=== PATIENT | female | born 1985 | race Caucasian/White ===

== ENCOUNTER 2017-03-20 13:48 | Outpatient (CLI) | payer OTHER ==
[~2017-03-20 13:48] MED LIST: MTR600X PO; PRENTAB26 PO
[2017-03-20] MEDS ORDERED: ACETAMINOPHEN 325 MG TAB PO PRN (14:45)
--- NOTE | 2017-03-20 14:50 | Discharge Instructions ---
Discharge Instructions Date of Service March 20, 2017. Admission Reason for Admission: Prolonged Monitoring - Post Fall Discharge Discharge Diagnosis / Problem: S/P FALL, LEG PAIN Discharge Goals Goal(s): Continuing OB care Activity Recommendations Activity Limitations: as noted below Lifting Limitations: gradually increase as tolerated Exercise/Sports Limitations: until after follow-up appointment May Resume Sexual Activity: after follow-up appointment Shower/Bathe: no limitations Driving or Machine Use: no limitations ACTIVITY RECOMMENDATIONS: See Labor Sheet. SPECIAL CARE INSTRUCTIONS: Call Doctor if: * Regular contractions every 5 minutes or greater than 5 contractions in one hour. * Bleeding * Water breaks or is leaking * Decreased movement * Fever >100.4 degrees F * Pain not relieved by routine measures or pain medication ordered. FOLLOW UP VISIT: Return to Labor and Delivery on for /call for appointment time . Follow-up Visit with: When: . Current Hospital Diet Patient's current hospital diet: Discharge Diet Recommended Diet: Regular Diet Pending Studies Studies pending at discharge: no Work Instructions Return To Work: 3 days Medical Emergencies . Who to Call and When: Medical Emergencies: If at any time you feel your situation is an emergency, please call 911 immediately. . Non-Emergent Contact Non-Emergency issues call your: Primary Care Provider Call Non-Emergent contact if: your pain is not controlled . . "Provider Documentation" section prepared by Salinas Coyle. . VTE Core Measure Inpt VTE Proph given/why not?: Treatment not indicated
== END 2017-03-20 15:05 | disposition home or self-care (01) ==
LOC: C.LD 13:48 → C.OPB 13:48
PROVIDERS: ATTEND Obstetrics & Gynecology
DX: O99.89 Other specified diseases and conditions complicating pregnancy, childbirth and the puerperium (principal); S80.01XA Contusion of right knee, initial encounter; W19.XXXA Unspecified fall, initial encounter; Z3A.33 33 weeks gestation of pregnancy

== ENCOUNTER 2017-04-30 02:05 | Outpatient (CLI) | payer OTHER ==
[~2017-04-30] VITALS: Ht 154.9 cm; Wt 68.0 kg
[2017-04-30 03:31] VITALS: Ht 154.9 cm; Wt 68.0 kg
[2017-05-01] MEDS ORDERED: ASPI81CH2 PO (04:29)
[2017-05-03] MEDS ORDERED: MISC-696 (07:31)
[2017-05-03] MEDS ORDERED: FRRS300 PO (07:31)
--- NOTE | 2017-05-03 08:07 | EDITING REQUIRED CODING QUERY ---
DIAGNOSIS NEEDED To promote full compliance with coding requirements relating to patient care, physician participation is requested in all cases of duty manager uncertainty. Please assist us with the question(s) below: Coding Question: The patient received care in labor and delivery on 04/30/17 as noted within the record. Please document the diagnosis that is being addressed by the medication/treatment. Provider Response: DIAGNOSIS: Contractions, Rule out labor Thank you for your assistance, Rama Wright - Barge Captain
== END 2017-04-30 03:25 | disposition home or self-care (01) ==
LOC: C.OPB 02:05 → C.LD 02:06 → C.OPB 03:25
PROVIDERS: ATTEND Obstetrics & Gynecology
DX: O62.9 Abnormality of forces of labor, unspecified (principal); Z3A.40 40 weeks gestation of pregnancy

== ENCOUNTER 2017-05-01 03:44 | Inpatient (IN) | payer OTHER ==
[~2017-05-01] VITALS: Ht 154.9 cm; Wt 65.8 kg
[2017-05-01] MEDS ORDERED: ASPI81CH2 PO (04:29)
[2017-05-01] MEDS ORDERED: LACTATED RINGER'S 1000ML 1,000 ML IV PRN (04:40)
[2017-05-01 04:53] VITALS: Ht 154.9 cm; Wt 65.8 kg
[2017-05-01 05:17] LABS: HEMATOCRIT 37.1 % (37-47); MEAN CELL VOLUME 92.5 fL (80-100); MEAN CORPUSCULAR HEMOGLOBIN 30.9 pg (25-34); MEAN CORPUSCULAR HGB CONC 33.4 g/dl (32-36); MEAN PLATELET VOLUME 11.2 fL (7.4-10.4); PLATELET COUNT 219 K/uL (130-400); RED BLOOD COUNT 4.01 M/uL (4.2-5.4); WHITE BLOOD COUNT 9.09 K/uL (4.8-10.8)
[2017-05-01] MEDS ORDERED: EpHEDrine SULFATE INJ 50 MG/ML AMP ONE (05:24)
[2017-05-01] MEDS ORDERED: BUPIVACAINE 0.25% 30 ML VIAL ONE (05:24)
[2017-05-01] MEDS ORDERED: FENTANYL CITRATE INJ 50 MCG/1 ML 2 ML VIAL ONE (05:25)
[2017-05-01] MEDS ORDERED: FENTANYL 2MCG/ML ROPIV 1.25MG/ML 100ML BAG EPI ONE (05:25)
[2017-05-01 05:36] LABS: BUN/CREATININE RATIO 15.8 (10-20); CREATININE 0.52 mg/dl (0.60-1.20); POTASSIUM 3.9 mmol/L (3.5-5.1)
[2017-05-01 05:39] LABS: ALB/GLOB RATIO 0.6 (0.9-2)
[2017-05-01] MEDS ORDERED: LACTATED RINGER'S 1000ML 500 ML IV PRN (05:49)
[2017-05-01] MEDS ORDERED: NALOXONE HCL INJ 1 MG in SODIUM CHLORIDE 0.9% 1000ML 1,000 ML IV PRN (05:49)
[2017-05-01] MEDS: LACTATED RINGER'S 1000ML 1,000 ML IV SCH ×2 (05:55→12:32)
[2017-05-01 05:56] LABS: INR 0.9 (0.9-1.1); PROTHROMBIN TIME (PATIENT) 9.4 SECONDS (9.0-12.0)
[2017-05-01] MEDS ORDERED: EpHEDrine SULFATE INJ 50 MG/ML AMP IV PRN (06:00)
[2017-05-01] MEDS ORDERED: NALOXONE HCL INJ 0.4 MG/1 ML VIAL/CARP IV PRN (06:00)
[2017-05-01] MEDS: FENTANYL 2MCG/ML ROPIV 1.25MG/ML 100ML BAG EPI PRN ×2 (07:05→14:01)
--- NOTE | 2017-05-01 07:44 | Progress Note ---
Progress Note Date of Service May 01, 2017. Progress Note cervix /1 AROM with clear fluid FHT Cat 1
[2017-05-01] MEDS ORDERED: OXYTOCIN 30 UNITS/500ML NSS IV ONE (14:36)
[2017-05-01] MEDS ORDERED: LACTATED RINGER'S 1000ML 1,000 ML IV SCH (15:00)
[2017-05-01] MEDS ORDERED: HYDROCORTISONE ACETATE 25 MG SUPP PR PRN (15:00)
[2017-05-01] MEDS ORDERED: DIPHTHERIA/TETANUS/PERTUSSIS 0.5 ML SYR/VIAL IM. ONE (15:00)
[2017-05-01] MEDS ORDERED: LANOLIN OINT EXT PRN ×2 (15:00)
[2017-05-01] MEDS ORDERED: MEASLES, MUMPS & RUBELLA VIRUS VIAL SQ. ONE (15:00)
[2017-05-01] MEDS ORDERED: SUPERCREAM 0.870 % 15GM JAR EXT PRN (15:00)
[2017-05-01] MEDS ORDERED: ACETAMINOPHEN/CODEINE 300/30MG TAB PO PRN (15:00)
[2017-05-01] MEDS ORDERED: OXYTOCIN 30 UNITS/500ML NSS IV PRN (15:00)
[2017-05-01] MEDS ORDERED: BENZOCAINE 20% AER SPR 82.5 GM CAN EXT PRN (15:00)
[2017-05-01] MEDS ORDERED: ACETAMINOPHEN 325 MG TAB PO PRN (15:00)
--- NOTE | 2017-05-01 15:07 | Vaginal Delivery Summary ---
Vaginal Delivery Summary Delivery Note live male ANGELO over intact perineum with Apgars 9/10 weight pending. Delayed cord clamping. 3VC. Placenta delivered spontaneously and intact. No tears. EBL 250 ml. Final sponge and instrument count are correct. Mom and baby stable.
--- NOTE | 2017-05-01 15:14 | Anesthesia Procedure Note ---
Anesthesia Epidural Removal Nt Date & Time May 01, 2017 at 15:14 Vital Signs Pain Intensity: 3.0 Notes Mental Status: alert / awake / arousable, participated in evaluation Nausea / Vomiting: adequately controlled Pain: adequately controlled Airway Patency, RR, SpO2: stable & adequate BP & HR: stable & adequate Hydration State: stable & adequate Neuraxial Anesthesia: was administered Anesthetic Complications: no major complications apparent, pt satisfied with anesthetic care Epidural: removed without complications, with tip intact
[2017-05-01] MEDS: IBUPROFEN 600 MG TAB PO PRN ×2 (16:53→21:48)
[2017-05-01 18:00] VITALS: BP 99/66; PULSE 101; TEMP 36.4
[2017-05-01 19:30] VITALS: BP 116/73; PULSE 80; TEMP 36.5
[2017-05-01] MEDS: ACETAMINOPHEN/CODEINE 300/30MG TAB PO PRN (20:33)
[2017-05-01] MEDS: DOCUSATE SODIUM 100 MG CAP PO SCH (20:34)
[2017-05-01 23:30] VITALS: BP 93/56; PULSE 80; TEMP 36.7; O2SAT 99
[2017-05-02] MEDS: ACETAMINOPHEN/CODEINE 300/30MG TAB PO PRN ×6 (00:55→22:52)
[2017-05-02 03:35] VITALS: BP 97/62; PULSE 76; TEMP 36.7; O2SAT 96
[2017-05-02 08:15] LABS: HEMATOCRIT 28.9 % (37-47)
[2017-05-02] MEDS: PRENATAL VITAMIN TAB PO SCH (08:21)
[2017-05-02] MEDS: DOCUSATE SODIUM 100 MG CAP PO SCH ×2 (08:22→19:31)
[2017-05-02] MEDS: FERROUS SULFATE 325 MG TAB PO SCH (08:22)
[2017-05-02 08:30] VITALS: BP 102/65; PULSE 79; TEMP 36.5
[2017-05-02] MEDS: IBUPROFEN 600 MG TAB PO PRN ×4 (10:11→22:53)
[2017-05-02 12:00] VITALS: BP 100/65; PULSE 70; TEMP 36.7
[2017-05-02 15:45] VITALS: BP 98/64; PULSE 75; TEMP 36.3; O2SAT 98
[2017-05-02] MEDS ORDERED: BISACODYL 5 MG TABEC PO SCH (20:00)
[2017-05-02 23:00] VITALS: BP 93/60; PULSE 82; TEMP 36.4; O2SAT 97
[2017-05-03] MEDS: IBUPROFEN 600 MG TAB PO PRN ×2 (02:46→06:28)
[2017-05-03] MEDS: ACETAMINOPHEN/CODEINE 300/30MG TAB PO PRN ×2 (02:46→06:29)
[2017-05-03] MEDS ORDERED: BISACODYL 10 MG SUPP PR PRN (07:00)
--- NOTE | 2017-05-03 07:30 | OB/GYN Progress Note ---
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 Patient is seen and examined. She feels well, no complaints. likes to go home Ambulating without dizziness Voiding without difficulty Tolerating regular diet with out N&V Bleeding is minimal No fever/ chills/ CP/ SOB/ N&V/ Leg pain Breast feeding without problems Last 24 Hours Test 05/02/17 07:43 Hemoglobin 9.6 g/dL Hematocrit 28.9 % PE: General: Alert, orientedx3, NAD Abd: soft, NT, fundus firm, below Umbilicus Perineum intact, Lochia rubra minimal Ext; NT, no edema AP: 31 yo s/p , ppd# 2 VSS Afebrile doing well Continue routine care Instructions were given when to call All questions were answered D/C home , f/u in office
[2017-05-03] MEDS ORDERED: FRRS300 PO (07:31)
[2017-05-03] MEDS ORDERED: MISC-696 (07:31)
--- NOTE | 2017-05-03 07:32 | Discharge Instructions ---
Discharge Instructions Date of Service May 03, 2017. Admission Reason for Admission: Uterine Contractions At Greater Than 20 Weeks Of Discharge Discharge Diagnosis / Problem: Discharge Goals Goal(s): Routine recovery after delivery Medications Continue Dispensed Medications: lansinoh Activity Recommendations Activity Limitations: as noted below Lifting Limitations: gradually increase as tolerated Exercise/Sports Limitations: until after follow-up appointment May Resume Sexual Activity: after follow-up appointment Shower/Bathe: no limitations Driving or Machine Use: ACTIVITY RECOMMENDATIONS: * Gradual return to full activity over the next 2-3 weeks. * No lifting - nothing heavier than baby over the next 2-3 weeks. * Do not engage in vigorous exercise, sexual activity or sports until cleared by your physician. * Do not drive or operate any motorized equipment until cleared by your physician. * You may shower/bathe daily. BREAST CARE: If you are not breast feeding: * Wear a supportive bra 24 hours a day for one to two weeks. * Avoid stimulating your breasts and nipples as much as possible during the first few weeks after delivery. * When taking a shower, have the warm water hit your back, not breasts. * When your breasts feel full, apply ice packs. Usually three to four times a day helps ease the discomfort. * Take a mild pain medication (Tylenol/Motrin) when you are uncomfortable. If breast feeding: * Use breast milk to lubricate nipples. Lansinoh cream may be used for sore nipples. You do not need to remove cream prior to breast feeding. If using a different brand of cream, check the label for directions regarding removal of cream prior to nursing. * Wear a supportive bra. * If having problems with breasts or breast feeding, call a network relations consultant or your health care provider. EPISIOTOMY CARE: After delivery, if you have an episiotomy (stitches), the following steps will ease discomfort and aid healing. * For the first 24 hours after delivery, place ice packs next to your episiotomy to help reduce swelling. * After the first 24 hour-period, sitz baths, either portable or in the tub, are suggested. A shower with a shower arm sprayed over the episiotomy may be comforting. * Leighann care should be done after each voiding and bowel movement. Squirt warm water from a plastic bottle over the perineum (region of the body between the anus and urinary opening) and pat dry. * Use Dermoplast to ease discomfort. Shake container. Hardy directly over the episiotomy. * Place a Tucks on a clean sanitary pad next to your episiotomy. OVER THE COUNTER MEDICATION: * For discomfort or pain, you may use Acetaminophen (Tylenol), Ibuprofen (Advil ), or Naproxen (Aleve) following the package directions. * For constipation you may use Colace following the package directions. SPECIAL CARE INSTRUCTIONS: When you are discharged from the hospital, it is important for you to follow the instructions listed below: * During the first week at home, you should be able to care for yourself and your baby. In addition, the usual light household activities are encouraged. * Limit your activities to the way you feel. Do not try to clean the house or move furniture. Be sensible. * If you actively engage in sports and have done so up until the time of your delivery, you may resume these activities as soon as you feel able. This may take up to one month or even longer. Use good judgment. * Continue to take your vitamins for at least six weeks after the of your baby. * Your diet need not be limited unless you were on a special diet before your delivery. Breast-feeding mothers need around 2500 calories per day and at least 64-80 ounces of fluid per day (8 to 10 glasses). * You should eat foods from the four major food groups. Crash diets or fad diets are to be avoided. Eating lean meats, fresh fruits and vegetables, low-fat dairy products, high fiber foods and a regular exercise program, will help you get back to your pre- weight without putting your health at risk. * Constipation is sometimes a problem after delivery. Take a mild laxative as needed. If breast feeding, Milk of Magnesia is acceptable to use. You may use a suppository or Fleets enema if no episiotomy. * A daily shower or tub bath is suggested. Be sure to thoroughly and gently dry the perineum. * A bloody vaginal discharge will usually continue until around four weeks post . A small amount of bleeding may continue for as long as six weeks. Vaginal discharge changes from the bright red bleeding after delivery to pink then brownish and finally yellowish-pink before becoming white and disappearing. * Bleeding may increase with activity. Your first period may come in 4-8 weeks. If you are breast feeding, your period may be delayed even longer. * Snead (sex) can begin whenever both you and your partner feel comfortable and do not have any form of genital infection. It is recommended that you wait until after your return appointment and discuss with your physician. If you have questions, please talk to your health care practitioner. A condom should be used to prevent infection and . * Foreplay, gentle intercourse and lubrication is very important the first several times to prevent pain. A water-based lubricant such as K-Y jelly or Astroglide may be used. * Tampons may be used six weeks after delivery. * Douching should be avoided for 6 weeks after delivery. * If you have RH negative blood and your baby is RH positive, you will receive RHOGAM by injection prior to discharge. The nurse will give you a card to keep with you that has the date and place that you received RHOGAM after delivery. * During your care, you had a Rubella screen done to check for the presence of rubella antibodies in your blood. If your test was negative, you will receive a Rubella vaccine prior to discharge. This vaccine may cause a fever, soreness at the injection site and flu-like symptoms. If these symptoms persist, notify your health care practitioner. is not advised for three months after a Rubella vaccine. There is a higher chance of having a baby with defects if conceived within three months of getting the vaccine. * If you were discharged 24 hours from delivery or before 48 hours: Visiting nurses will come to your home 48 hours after discharge to assess you and your baby. The visiting nurse will meet with you while you are in the hospital to arrange a time and get directions to your home. * Verbalizes understanding of car seat law as reviewed with patient nursing. * Car Seat hand-out given and reviewed with patient by nursing. * Shaken baby information reviewed with patient by nursing. Call you doctor if: * Heavy bleeding (saturating several pads an hour) or passing clots the size of your fist. * A fever >101 degrees F (38.3 degrees C) on two occasions four hours apart and/or chills. * Unusual pain in the pelvic or vaginal areas. * "Baby Blues" lasting longer than two weeks. If you have any questions or concerns, call your health care practitioner at . FOLLOW-UP VISIT: * Please call the office at to schedule a 6 week examination. It is important you keep this appointment. * It is important for you to make arrangements for either yearly or twice yearly check-ups thereafter. . Current Hospital Diet Patient's current hospital diet: Regular OB Diet Discharge Diet Recommended Diet: Regular Diet Pending Studies Studies pending at discharge: no Medical Emergencies . Who to Call and When: Medical Emergencies: If at any time you feel your situation is an emergency, please call 911 immediately. . Non-Emergent Contact Non-Emergency issues call your: Primary Care Provider, Surgeon Call Non-Emergent contact if: temperature is above 100.5, your pain is worsening . . "Provider Documentation" section prepared by Salinas Coyle. . VTE Core Measure Inpt VTE Proph given/why not?: Treatment not indicated
[2017-05-03 08:00] VITALS: BP 94/58; PULSE 72; TEMP 36.6
[2017-05-03] MEDS: PRENATAL VITAMIN TAB PO SCH (08:02)
[2017-05-03] MEDS: FERROUS SULFATE 325 MG TAB PO SCH (08:02)
[2017-05-03] MEDS: DOCUSATE SODIUM 100 MG CAP PO SCH (08:02)
[2017-05-03 13:30] VITALS: BP_DIAS 58; PULSE 72; TEMP 36.6
== END 2017-05-03 13:50 | disposition home or self-care (01) | DRG 775 ==
LOC: C.OPB 03:44 → C.LD 03:47 → C.OPB 04:45 → C.OBG 18:00
PROVIDERS: ADMIT Obstetrics & Gynecology; ATTEND Obstetrics & Gynecology
PROC: 10907ZC Drainage of Amniotic Fluid, Therapeutic from Products of Conception, Via Natural or Artificial Opening (ICD-10-PCS; principal; 2017-05-01)
PROC: 4A1HXFZ Monitoring of Products of Conception, Cardiac Rhythm, External Approach (ICD-10-PCS; principal; 2017-05-01)
PROC: 10E0XZZ Delivery of Products of Conception, External Approach (ICD-10-PCS; principal; 2017-05-01)
DX: O99.340 Other mental disorders complicating pregnancy, unspecified trimester (principal); F43.10 Post-traumatic stress disorder, unspecified; Z90.79 Acquired absence of other genital organ(s); Z3A.39 39 weeks gestation of pregnancy; Z37.0 Single live birth

== ENCOUNTER 2021-04-24 02:27 | Inpatient (IN) ==
[2021-04-24] MEDS ORDERED: OXYTOCIN 30 UNITS/500 ML BAG IV PRN ×2 (04:56→09:06)
[2021-04-24] MEDS ORDERED: ePHEDrine sulfate 50 MG/ML AMP ONE (05:06)
[2021-04-24] MEDS ORDERED: SODIUM CHLORIDE 0.9% INJ 10 ML VIAL ONE (05:06)
[2021-04-24] MEDS ORDERED: fentaNYL 2MCG/ML ROPIVACAINE 1.25MG/ML 100 ML BAG EPI ONE (05:06)
[2021-04-24] MEDS ORDERED: fentaNYL citrate 100 MCG/2 ML VIAL ONE (05:06)
[2021-04-24] MEDS ORDERED: BUPIVACAINE 0.25% 30 ML VIAL ONE (05:06)
[2021-04-24] MEDS: LACTATED RINGER'S 1,000 ML IV PRN ×2 (05:12→07:17)
[2021-04-24 05:33] LABS: Hematocrit (blood only) 35.2 % (37-47); Hemoglobin 11.7 g/dL (12.0-16.0); Mean Corpuscular Hemoglobin 29.5 pg (25-34); Mean Corpuscular Hgb Conc 33.2 g/dL (32-36); Mean Corpuscular Volume 88.9 fL (80-100); Mean Platelet Volume 10.7 fL (7.4-10.4); Platelet Count 243 K/uL (130-400); RDW Coefficient of Variation 14.1 % (11.5-14.5); RDW Standard Deviation 46.1 fL (36.4-46.3); Red Blood Count 3.96 M/uL (4.2-5.4); White Blood Count 9.98 K/uL (4.8-10.8)
--- NOTE | 2021-04-24 05:48 | History & Physical Report ---
Date of Service April 24, 2021 Assessment & Plan (1) Uterine contractions: 35-year-old 022 at 38 weeks and 8 days of gestation presenting with regular contractions and cervical change, requesting epidural for pain Vital signs stable afebrile, heart rate reassuring, GBS negative, Plan to admit, monitor, IV fluids, epidural for pain and expectant management with regular contractions All questions were answered. Admission and Anticipated Discharge Date Admission Date: April 24, 2021 History of Present Illness Primary Care Provider: Hanny Porras Patient is a 35-year-old -0-2-2 at 38 weeks and 6 days of gestation who started to feel contractions at 11:30 PM last night they got closer and more painful. she presented to labor and delivery and requested epidural for pain. She denies leakage of fluid or vaginal bleeding. She reports good movements. Her has been uncomplicated except 1 AMA, NIPT testing was low risk 2 history of preeclampsia 3 history of demise, 3 months old baby diet at daycare 4 history of PTSD GBS negative Allergies Allergy/AdvReac Type Severity Reaction Status Date / Time No Known Allergies Allergy Verified 04/24/21 03:02 Home Medications Medication Instructions Recorded Confirmed Type Multivit/Min/Iron/Fol Ac/Pren 1 tab PO DAILY #0 03/27/07 04/24/21 History ( Vitamin) MISC. 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: No Beliefs That Will Affect Care: None marital status: Current Living Situation: Family Feels Safe at Home: Yes Safety Concerns: Feels Safe At This Time RECEPTIONIST History No h/o STD's, no h/o HSV, Chlamydia, GC Review of Systems All systems reviewed & are unremarkable except as noted in HPI & below Physical Exam Constitutional: WD/WN, vitals as above well developed, well nourished and + acute distress (with contractions) Gastrointestinal (Abdomen): normal bowel sounds, soft, nontender, no hepatosplenomegaly (gravid) Genitourinary: normal external appearance OB Exam Abdomen: + vertex (confirmed with bed side US) Manual OB Exam: + cervical dilation 4 cm, + cervical effacement 90% and + station -1 OB Exam Monitor Tracing: + external uterine monitor used (CTXS Q 2-4 MIN), + category I and + normal FHT variability Results & Data ([facility]) Vital Signs (Past 12 Hours) Vital Signs Temp Pulse Resp BP 04/24/21 02:50 76 117/77 04/24/21 02:44 36.6 C 16 Laboratory Results Lab Results 04/24/21 04/24/21 Range/Units 05:00 05:25 WBC 9.98 (4.8-10.8) K/uL RBC 3.96 L (4.2-5.4) M/uL Hgb 11.7 L (12.0-16.0) g/dL Hct 35.2 L (37-47) % MCV 88.9 (80-100) fL MCH 29.5 (25-34) pg MCHC 33.2 (32-36) g/dL RDW Std Deviation 46.1 (36.4-46.3) fL RDW Coeff of Samantha 14.1 (11.5-14.5) % Plt Count 243 (130-400) K/uL MPV 10.7 H (7.4-10.4) fL COVID-19 [facility]
[2021-04-24] MEDS ORDERED: NALOXONE HCL 1 MG in SODIUM CHLORIDE 0.9% 1000ML 1,000 ML IV PRN (06:20)
[2021-04-24] MEDS ORDERED: NALOXONE HCL 0.4 MG/1 ML VIAL/CARP IV PRN (06:20)
[2021-04-24] MEDS ORDERED: diphenhydrAMINE 50 MG/ML VIAL IV PRN (06:20)
[2021-04-24] MEDS ORDERED: fentaNYL 2MCG/ML ROPIVACAINE 1.25MG/ML 100 ML BAG EPI PRN (06:20)
[2021-04-24] MEDS ORDERED: ePHEDrine sulfate 50 MG/ML AMP IV PRN (06:20)
--- NOTE | 2021-04-24 06:20 | Anesthesiology Consultation ---
Date of Service April 24, 2021 Assessment & Plan Chart Review Chart Review: Patient NOT seen in Pre Admission Testing and Acceptable Risk for Labor Epidural Consults Requested none ASA ASA2 Proposed Anesthesia Anesthesia Type: CSE Risk / Benefits Reviewed With: PT / POA / Parent / Guardian, Accepts Plan and Informed Consent Obtained History Height/Weight Height: 5 ft 1 in Weight: 68.946 kg Allergies Allergy/AdvReac Type Severity Reaction Status Date / Time No Known Allergies Allergy Verified 04/24/21 03:02 Medications Home Medications Medication Instructions Recorded Confirmed Last Taken Multivit/Min/Iron/Fol Ac/Pren 1 tab PO DAILY #0 03/27/07 04/24/21 04/23/21 ( Vitamin) MISC. DEVICES (BREAST PUMP) dose #1 05/03/17 Unknown Active Medications Generic Name Dose Route Start Last Admin Trade Name Freq PRN Reason Stop Dose Admin Lactated Ringer's 1,000 mls @ 125 mls/hr 04/24/21 04:56 04/24/21 05:55 Lr IV 04/26/21 04:55 125 mls/hr .Q8H PRN Infusion L&D Protocol Protocol Exercise / Class Metabolic Activity II 4-5 Yardwork/Stairs/Walk up hill Past Anesthesia History No Hx of Anesthesia Complications and No Family Hx of Anesthesia Complications History of PONV No Hx of PONV and No Hx of Motion Sickness Social History Smoking Status: Never smoker Hx Alcohol Use: No Hx Substance Use: No substance use type: does not use Physical Exam Vital Signs Last Vital Signs Temp 36.6 C 04/24/21 02:44 Pulse 62 04/24/21 06:17 Resp 16 04/24/21 02:44 BP 121/64 04/24/21 06:16 Pulse Ox 95 04/24/21 06:17 ENMT Mouth: no dentition abnormality Thyromental Distance: > or= 3.5 Finger Breadths Mallampati Class: II Neck normal visual inspection Respiratory normal respiratory effort Auscultation: lungs clear to auscultation bilaterally Cardiovascular Rate/Rhythm: regular rate and regular rhythm Psychiatric Orientation: alert Testing Laboratory Results 04/24/21 05:25
--- NOTE | 2021-04-24 07:43 | Labor Progress Brief Note ---
Date of Service April 24, 2021 Assessment & Plan Admission and Anticipated Discharge Date Admission Date: April 24, 2021 Physical Exam Genitourinary: OB Exam Abdomen: + estimated weight Manual OB Exam: + cervical dilation 5 cm, + cervical effacement 100%, + station and + amniotic fluid clear OB Exam Monitor Tracing: + external FHT monitor used, + external uterine monitor used, + category I and + normal FHT variability AROM with Amni-hook clear fluid Results & Data ([facility]) Vital Signs (Past 12 Hours) Vital Signs Temp Pulse Resp BP Pulse Ox 04/24/21 07:37 82 97 04/24/21 07:32 77 95 04/24/21 07:31 20 04/24/21 07:28 65 86/47 L 04/24/21 07:27 69 96 04/24/21 07:24 36.9 C 20 04/24/21 07:22 78 95 04/24/21 07:17 82 96 04/24/21 07:14 70 102/50 L 04/24/21 07:12 94 H 96 04/24/21 07:07 66 93 04/24/21 07:02 68 93 04/24/21 06:58 83 100/53 L 04/24/21 06:57 76 95 04/24/21 06:52 63 95 04/24/21 06:47 63 94 04/24/21 06:43 64 99/51 L 04/24/21 06:42 66 94 04/24/21 06:37 61 95 04/24/21 06:32 62 94 04/24/21 06:27 69 107/54 L 95 04/24/21 06:26 65 117/54 L 04/24/21 06:24 62 125/59 L 04/24/21 06:22 83 95 04/24/21 06:20 69 108/68 04/24/21 06:17 62 95 04/24/21 06:16 71 121/64 04/24/21 06:14 62 136/58 L 94 04/24/21 06:12 79 96 04/24/21 06:07 75 99 04/24/21 06:02 75 98 04/24/21 05:55 67 139/83 04/24/21 02:50 76 117/77 04/24/21 02:44 36.6 C 16
--- NOTE | 2021-04-24 08:32 | Delivery Summary ---
Vaginal Delivery Summary Date of Service April 24, 2021 Vaginal Delivery Summary Delivery Note live female ANGELO over intact perineum with delayed cord clamping and Apgars 8/9 weight pending. Placenta delivered spontaneously and intact. No tears. EBL 150 ml. Final sponge and instrument count are correct. Mom and baby stable.
[2021-04-24] MEDS ORDERED: NON-FORMULARY MEDICATION (Multivit/Min/Iron/Fol Ac/Pren (Prenatal Vitamin) tablet) PO SCH (09:06)
[2021-04-24] MEDS ORDERED: HYDROCORTISONE ACETATE 25 MG SUPP PR PRN (09:06)
[2021-04-24] MEDS ORDERED: SUPERCREAM 0.870% 15 GM JAR EXT PRN (09:06)
[2021-04-24] MEDS ORDERED: bisacodyL 10 MG SUPP PR PRN (09:06)
[2021-04-24] MEDS ORDERED: DIPHTHERIA/TETANUS/PERTUSSIS 0.5 ML SYR/VIAL IM ONE (09:06)
[2021-04-24] MEDS ORDERED: BENZOCAINE 20% AER SPR 82.5 GM CAN EXT PRN (09:06)
[2021-04-24] MEDS: IBUPROFEN 600 MG TAB PO PRN ×4 (10:46→23:04)
--- NOTE | 2021-04-24 10:46 | Anesthesia Procedure Note ---
Date of Service April 24, 2021 Anesthesia Post Epidural Note Vital Signs Vital Signs: Temp Pulse Resp BP Pulse Ox 36.9 C 68 20 104/64 97 04/24/21 07:24 04/24/21 10:42 04/24/21 10:00 04/24/21 10:42 04/24/21 08:32 Notes Mental Status: alert / awake / arousable and participated in evaluation Patient Amnestic to Procedure: Yes Nausea / Vomiting: adequately controlled Pain: adequately controlled Airway Patency, RR, SpO2: stable & adequate BP & HR: stable & adequate Hydration State: stable & adequate Anesthetic Complications: no major complications apparent and Pt Satisfied with anesthetic care
[2021-04-24] MEDS: ACETAMINOPHEN 325 MG TAB PO PRN ×2 (13:29→20:21)
[2021-04-24] MEDS: DOCUSATE SODIUM 100 MG CAP PO SCH (20:23)
[2021-04-25] MEDS: IBUPROFEN 600 MG TAB PO PRN ×5 (03:08→20:42)
[2021-04-25 05:49] LABS: Hematocrit (blood only) 31.9 % (37-47); Hemoglobin 10.5 g/dL (12.0-16.0); Mean Corpuscular Hemoglobin 29.6 pg (25-34); Mean Corpuscular Hgb Conc 32.9 g/dL (32-36); Mean Corpuscular Volume 89.9 fL (80-100); Mean Platelet Volume 10.9 fL (7.4-10.4); Platelet Count 215 K/uL (130-400); RDW Coefficient of Variation 14.5 % (11.5-14.5); RDW Standard Deviation 47.8 fL (36.4-46.3); Red Blood Count 3.55 M/uL (4.2-5.4); White Blood Count 12.19 K/uL (4.8-10.8)
[2021-04-25] MEDS: PRENATAL VITAMIN 1 TAB PO SCH (08:34)
[2021-04-25] MEDS: DOCUSATE SODIUM 100 MG CAP PO SCH ×2 (08:34→20:42)
--- NOTE | 2021-04-25 08:43 | Obstetrical Progress Note ---
Date of Service April 25, 2021 Assessment & Plan Admission and Anticipated Discharge Date Admission Date: April 24, 2021 Subjective Patient is seen and examined. She feels well, no complaints. Ambulating without dizziness Voiding without difficulty Tolerating regular diet with out N&V Bleeding is minimal No fever/ chills/ CP/ SOB/ N&V/ Leg pain Breast feeding without problems Lab Results 04/24/21 04/24/21 04/24/21 Range/Units 05:00 05:00 05:25 WBC 9.98 (4.8-10.8) K/uL RBC 3.96 L (4.2-5.4) M/uL Hgb 11.7 L (12.0-16.0) g/dL Hct 35.2 L (37-47) % MCV 88.9 (80-100) fL MCH 29.5 (25-34) pg MCHC 33.2 (32-36) g/dL RDW Std Deviation 46.1 (36.4-46.3) fL RDW Coeff of Samantha 14.1 (11.5-14.5) % Plt Count 243 (130-400) K/uL MPV 10.7 H (7.4-10.4) fL COVID-19 [facility] SARS-[place]-2, RNA, NAAT NEGATIVE (NEGATIVE) 04/25/21 Range/Units 05:33 WBC 12.19 H (4.8-10.8) K/uL RBC 3.55 L (4.2-5.4) M/uL Hgb 10.5 L (12.0-16.0) g/dL Hct 31.9 L (37-47) % MCV 89.9 (80-100) fL MCH 29.6 (25-34) pg MCHC 32.9 (32-36) g/dL RDW Std Deviation 47.8 H (36.4-46.3) fL RDW Coeff of Samantha 14.5 (11.5-14.5) % Plt Count 215 (130-400) K/uL MPV 10.9 H (7.4-10.4) fL COVID-19 Eval Order SARS-CoV-2, RNA, NAAT (NEGATIVE) Vital Signs Temp Pulse Resp BP BP Pulse Ox 04/25/21 03:00 36.7 C 72 16 115/72 98 04/24/21 23:00 36.5 C 70 18 112/71 98 04/24/21 20:45 36.6 C 85 16 127/84 PE: General: Alert, orientedx3, NAD Abd: soft, NT, fundus firm, below Umbilicus Perineum intact, Lochia rubra minimal Ext; NT, no edema AP: 35 yo s/p , ppd# 1 VSS Afebrile doing well Continue routine care All questions were answered D/C home tomorrow Results & Data ([facility]) Vital Signs (Past 12 Hours) Vital Signs Temp Pulse Resp BP BP Pulse Ox 04/25/21 03:00 36.7 C 72 16 115/72 98 04/24/21 23:00 36.5 C 70 18 112/71 98 04/24/21 20:45 36.6 C 85 16 127/84
[2021-04-25] MEDS: ACETAMINOPHEN 325 MG TAB PO PRN ×2 (16:22→23:37)
[2021-04-25] MEDS ORDERED: bisacodyL 5 MG TABEC PO SCH (20:00)
[2021-04-25 23:33] VITALS: TEMP 98.1
[2021-04-26] MEDS: IBUPROFEN 600 MG TAB PO PRN (05:42)
[2021-04-26 07:01] LABS: Hematocrit (blood only) 32.2 % (37-47); Hemoglobin 10.4 g/dL (12.0-16.0)
--- NOTE | 2021-04-26 07:06 | Obstetrical Progress Note ---
Date of Service April 26, 2021 Assessment & Plan Admission and Anticipated Discharge Date Admission Date: April 24, 2021 Subjective Patient is seen and examined. She feels well, no complaints. Ambulating without dizziness Voiding without difficulty Tolerating regular diet with out N&V Bleeding is minimal No fever/ chills/ CP/ SOB/ N&V/ Leg pain Breast feeding without problems Vital Signs Temp Pulse Resp BP Pulse Ox 04/25/21 23:05 36.7 C 78 16 113/70 97 04/25/21 19:20 36.4 C L 82 16 111/77 97 Vital Signs Temp Pulse Resp BP Pulse Ox 04/25/21 23:05 36.7 C 78 16 113/70 97 04/25/21 19:20 36.4 C L 82 16 111/77 97 04/25/21 16:10 36.8 C 78 19 115/76 04/25/21 11:34 36.4 C L 75 16 110/76 97 04/25/21 08:05 36.6 C 73 18 117/74 97 Lab Results 04/24/21 04/24/21 04/24/21 Range/Units 05:00 05:00 05:25 WBC 9.98 (4.8-10.8) K/uL RBC 3.96 L (4.2-5.4) M/uL Hgb 11.7 L (12.0-16.0) g/dL Hct 35.2 L (37-47) % MCV 88.9 (80-100) fL MCH 29.5 (25-34) pg MCHC 33.2 (32-36) g/dL RDW Std Deviation 46.1 (36.4-46.3) fL RDW Coeff of Samantha 14.1 (11.5-14.5) % Plt Count 243 (130-400) K/uL MPV 10.7 H (7.4-10.4) fL COVID-19 Eval [facility]19 [facility] SARS-CoV-2, RNA, NAAT NEGATIVE (NEGATIVE) 04/25/21 04/26/21 Range/Units 05:33 06:40 WBC 12.19 H (4.8-10.8) K/uL RBC 3.55 L (4.2-5.4) M/uL Hgb 10.5 L 10.4 L (12.0-16.0) g/dL Hct 31.9 L 32.2 L (37-47) % MCV 89.9 (80-100) fL MCH 29.6 (25-34) pg MCHC 32.9 (32-36) g/dL RDW Std Deviation 47.8 H (36.4-46.3) fL RDW Coeff of Samantha 14.5 (11.5-14.5) % Plt Count 215 (130-400) K/uL MPV 10.9 H (7.4-10.4) fL COVID-19 Eval Order SARS-CoV-2, RNA, NAAT (NEGATIVE) PE: General: Alert, orientedx3, NAD Abd: soft, NT, fundus firm, below Umbilicus Perineum intact, Lochia rubra minimal Ext; NT, no edema AP: 35 yo s/p , ppd# 2 VSS Afebrile doing well Continue routine care All questions were answered Discussed when to call D/C home , f/u in office Results & Data ([facility]) Vital Signs (Past 12 Hours) Vital Signs Temp Pulse Resp BP Pulse Ox 04/25/21 23:05 36.7 C 78 16 113/70 97 04/25/21 19:20 36.4 C L 82 16 111/77 97
[2021-04-26 07:49] VITALS: BP 117/76; PULSE 76; O2SAT 98
[2021-04-26] MEDS: ACETAMINOPHEN 325 MG TAB PO PRN (08:13)
[2021-04-26] MEDS: DOCUSATE SODIUM 100 MG CAP PO SCH (08:13)
[2021-04-26] MEDS: PRENATAL VITAMIN 1 TAB PO SCH (08:13)
== END 2021-04-26 11:36 | disposition home or self-care (01) | DRG 807 ==
LOC: OPB 02:27 → 4S1 02:31 → 4S2 12:44